=== PATIENT | male | born 1960 | race Caucasian/White ===

== ENCOUNTER 2016-11-20 17:33 | Emergency (ER) | payer OTHER ==
[~2016-11-20] VITALS: Ht 180.3 cm; Wt 104.7 kg
[~2016-11-20 17:33] MED LIST: ASPI81TA28 PO; LISI-461 PO; PRLSR20 PO; SIMV10TA2 PO
[2016-11-20 17:43] VITALS: TEMP 36.7; Ht 180.3 cm; Wt 104.7 kg
[2016-11-20] MEDS ORDERED: KETOROLAC TROMETHAMINE 30 MG/ML VIAL IV STA (18:03)
[2016-11-20] MEDS ORDERED: HYDROmorphone INJ 1 MG/ML SYR IV STA (18:03)
[2016-11-20] MEDS ORDERED: ONDANSETRON INJ 2 MG/ML 2 ML VIAL IV STA (18:03)
[2016-11-20] MEDS ORDERED: SODIUM CHLORIDE 0.9% 1000ML 1,000 ML IV STA (18:03)
--- NOTE | 2016-11-20 18:04 | EMERGENCY ROOM VISIT NOTE ---
History Report prepared by Alex: Jonelle Caro Under the Supervision of: Dr. Gregorio Strong M.D. First contact with patient: 17:45 Chief Complaint: ABDOMINAL PAIN Stated Complaint: STOMACH PAIN, VOMITING History of Present Illness The patient is a 55 year old male who presents to the Emergency Room with complaints of persistent central abdominal pain that began around 0800 this morning and has progressively worsened. He currently rates his discomfort as a 10/10 in severity. The patient states that he woke with the pain this morning and denies any worsening pain with food. He associates nausea and vomiting with his symptoms. The patient denies the pain radiating to any other part of the body, back pain, or urinary symptoms. He denies taking anything for his discomfort. The patient denies any history of a cholecystectomy or appendectomy. Source of History: patient Onset: 0800 this morning Position: abdomen (central) Symptom Intensity: 10/10 Timing: worsening (progressively), other (persistent) Associated Symptoms: + nausea, + vomiting, No back pain, No urinary symptoms Review of Systems See HPI for pertinent positives & negatives. A total of 10 systems reviewed and were otherwise negative. Past Medical & Surgical Medical Problems: (1) Autism (2) GERD (gastroesophageal reflux disease) (3) Hyperlipidemia (4) Hypertension Family History Diabetes mellitus FHx: cancer FHx: gallbladder disease FHx: heart disease FHx: lung disease Hypertension Social History Smoking Status: Never Smoker Alcohol Use: occasionally Housing Status: lives with family Occupation Status: disabled Current/Historical Medications Scheduled Aspirin (Aspirin Ec), 81 MG PO DAILY Docusate Sodium (Colace), 1 CAP PO BID Lisinopril (Zestril), 10 MG PO DAILY Omeprazole (Prilosec), 20 MG PO DAILY Sennosides (Senokot), 8.6 MG PO HS Simvastatin (Zocor), 10 MG PO QPM Scheduled PRN Oxycodone/Acetaminophen 5MG/325MG (Percocet 5MG/325MG), 1-2 TAB PO Q4H PRN for Pain Allergies Coded Allergies: No Known Allergies (Unverified , 11/20/16) Physical Exam Vital Signs Date Time Temp Pulse Resp B/P (MAP) Pulse Ox O2 Delivery O2 Flow Rate FiO2 11/20/16 20:00 94 18 134/88 94 11/20/16 18:50 87 18 145/83 95 11/20/16 18:06 87 11/20/16 17:43 36.7 85 18 168/103 98 Room Air Physical Exam GENERAL: Patient is a healthy-appearing well-nourished male HEAD: Normocephalic atraumatic EYES: Ocular movements intact pupils equal and react to light OROPHARYNX mucous membranes are moist no exudates present no erythema or edema present NECK: Supple no nuchal rigidity CHEST: Good equal expansion LUNGS: Clear and equal to auscultation CARDIAC: Normal S1 and S2 ABDOMEN: Tender in the right upper quadrant. Soft, no guarding BACK: No CVA tenderness EXTREMITIES: No pain upon palpation normal muscle strength in all groups no clubbing cyanosis or edema NEURO: Patient is following commands and answering questions appropriately. Alert and oriented x3 Cranial Nerves 2-12 grossly intact Medical Decision & Procedures ER Provider Diagnostic Interpretation: Radiology results as stated below per my review and radiologist interpretation: ABDOMINAL ULTRASOUND, RIGHT UPPER QUADRANT HISTORY: Pain. Nausea. Pt c/o RUQ abd pain. COMPARISON: None. FINDINGS: Pancreas: The pancreas demonstrates a normal echotexture. Liver: Fatty infiltration Gallbladder: 1.5 cm gallstone. Normal gallbladder wall. CBD: 7 mm Right kidney: No hydronephrosis. IMPRESSION: Gallstone. Slight prominence of the common bile duct. Fatty infiltration of liver. Electronically signed by: Red Carlos M.D. 11/20/2016 6:46 PM Dictated Date/Time: 11/20/2016 6:45 PM ABDOMEN AND PELVIS CT WITH IV CONTRAST CT DOSE: 849.33 mGy.cm HISTORY: Pain Pt c/o epigastric pain TECHNIQUE: Multiaxial CT images of the abdomen and pelvis were performed following the use of intravenous contrast. COMPARISON STUDY: None. FINDINGS: The lung bases are clear. The liver, spleen, gallbladder, pancreas, kidneys, and adrenal glands are within normal limits. No bowel wall thickening or obstruction. The pelvic organs are unremarkable. No suspicious lytic or blastic osseous lesions. The appendix is normal. Gallbladder shows no evidence for distention. Kidneys negative for hydronephrosis. IMPRESSION: No acute process of the abdomen or pelvis Electronically signed by: Red Carlos M.D. 11/20/2016 7:08 PM Dictated Date/Time: 11/20/2016 7:06 PM Laboratory Results 11/20/16 18:01 Red Blood Count 5.00, Mean Corpuscular Volume 86.0, Mean Corpuscular Hemoglobin 30.4, Mean Corpuscular Hemoglobin Concent 35.3, Mean Platelet Volume 8.7, Neutrophils (%) (Auto) 87.0, Lymphocytes (%) (Auto) 7.6, Monocytes (%) (Auto) 4.8, Eosinophils (%) (Auto) 0.2, Basophils (%) (Auto) 0.2, Neutrophils # (Auto) 11.29, Lymphocytes # (Auto) 0.98, Monocytes # (Auto) 0.62, Eosinophils # (Auto) 0.02, Basophils # (Auto) 0.02 11/20/16 18:01 Test 11/20/16 18:01 11/20/16 18:11 White Blood Count 12.96 K/uL (4.8-10.8) Red Blood Count 5.00 M/uL (4.7-6.1) Hemoglobin 15.2 g/dL (14.0-18.0) Hematocrit 43.0 % (42-52) Mean Corpuscular Volume 86.0 fL (80-100) Mean Corpuscular Hemoglobin 30.4 pg (25-34) Mean Corpuscular Hemoglobin Concent 35.3 g/dl (32-36) Platelet Count 243 K/uL (130-400) Mean Platelet Volume 8.7 fL (7.4-10.4) Neutrophils (%) (Auto) 87.0 % Lymphocytes (%) (Auto) 7.6 % Monocytes (%) (Auto) 4.8 % Eosinophils (%) (Auto) 0.2 % Basophils (%) (Auto) 0.2 % Neutrophils # (Auto) 11.29 K/uL (1.4-6.5) Lymphocytes # (Auto) 0.98 K/uL (1.2-3.4) Monocytes # (Auto) 0.62 K/uL (0.11-0.59) Eosinophils # (Auto) 0.02 K/uL (0-0.5) Basophils # (Auto) 0.02 K/uL (0-0.2) RDW Standard Deviation 43.3 fL (36.4-46.3) RDW Coefficient of Variation 13.8 % (11.5-14.5) Immature Granulocyte % (Auto) 0.2 % Immature Granulocyte # (Auto) 0.03 K/uL (0.00-0.02) Est Creatinine Clear Calc Drug Dose 85.6 ml/min Estimated GFR () 78.4 Estimated GFR (Non- 67.7 BUN/Creatinine Ratio 17.7 (10-20) Calcium Level 9.5 mg/dl (8.5-10.1) Total Bilirubin 0.7 mg/dl (0.2-1) Direct Bilirubin 0.1 mg/dl (0-0.2) Aspartate Amino Transf (AST/SGOT) 23 U/L (15-37) Alanine Aminotransferase (ALT/SGPT) 31 U/L (12-78) Alkaline Phosphatase 50 U/L (45-117) Total Protein 7.7 gm/dl (6.4-8.2) Albumin 4.1 gm/dl (3.4-5.0) Lipase 150 U/L (73-393) Bedside Hemoglobin 15.6 g/dl (14.0-18.0) Bedside Hematocrit 46 % (42-52) Bedside Sodium 137 mEq/L (135-144) Bedside Potassium 4.1 mEq/L (3.3-5.0) Bedside Chloride 100 mEq/L (101-112) Bedside Total CO2 23 mEq/l (24-31) Anion Gap 20.0 mmol/L (16-25) Bedside Blood Urea Nitrogen 21 mg/dl (7-18) Bedside Creatinine 1.0 mg/dl (0.6-1.3) Bedside Glucose (other) 118 mg/dl (70-99) Bedside Ionized Calcium (Rafaela) 1.12 mmol/l (1.12-1.32) Labs reviewed by ED physician. Medications Administered Medications (Trade) Dose Ordered Sig/Xavi Route Start Time Stop Time Status Last Admin Dose Admin Sodium Chloride 1,000 ml @ 999 mls/hr Q1H1M STAT IV 11/20/16 18:03 11/20/16 19:03 DC 11/20/16 18:12 999 MLS/HR Ketorolac Tromethamine (Toradol Inj) 30 mg NOW STAT IV 11/20/16 18:03 11/20/16 18:06 DC 11/20/16 18:13 30 MG Hydromorphone HCl (Dilaudid Inj) 1 mg NOW STAT IV 11/20/16 18:03 11/20/16 18:06 DC 11/20/16 18:16 1 MG Oxycodone/ Acetaminophen (Percocet 5/ 325MG Home Pack) 1 homepack UD ONCE PO 11/20/16 19:45 11/20/16 19:46 DC 11/20/16 19:52 1 HOMEPACK ECG Indication: abdominal pain Rate (beats per minute): 82 Rhythm: normal sinus Findings: no acute ischemic change, no ectopy ED Course 1746: Past medical records reviewed. The patient was evaluated in room B7. A complete history and physical examination was performed by the medical student. 1757: Past medical records reviewed. The patient was evaluated in room B7. A complete history and physical examination was performed. 1802: Ordered Zofran Inj 4 mg IV, Dilaudid Inj 1 mg IV, Toradol Inj 30 mg IV, Sodium Chloride 1000 ml @ 999 mls/hr IV. 1848: I reevaluated the patient and he is resting comfortably. I discussed the exam findings with him and I discussed the treatment plan. He will have a CT scan. 1935: I reevaluated the patient and he is doing well. I discussed all the exam findings with him and I discussed the treatment plan. He verbalized complete understanding and agreement. He is ready to go home. 1944: Ordered Oxycodone/Acetaminophen 1 homepack PO. Medical Decision Differential diagnosis: Etiologies such as appendicitis, diverticulitis, PUD, biliary pathology, UTI, pancreatitis, obstruction, mesenteric ischemia, aortic pathology, infections, inflammatory bowel disease, renal colic, as well as others were entertained. Medication Reconciliation: I attest that I have personally reviewed the patient' s current medication list Blood Pressure Screening: Patient was found to have an elevated blood pressure and was referred to their primary care doctor for recheck and further treatment This is a 55-year-old male who presents emergency department complaining of right upper quadrant abdominal pain. The patient was sent for an ultrasound of the right upper quadrant. This was concerning for gallstone. An IV was established, patient given normal saline bolus. The patient does have an elevation in his white blood count cell count however subsequent abdominal examinations in the emergency department revealed that the patient did not have any further abdominal pain. I do believe based on the ultrasound results with the patient is most likely suffering from biliary colic. He is afebrile now and has no evidence of a surgical abdomen. He has no evidence of acute cholecystitis. Based on these findings I do feel that the patient as well as to be discharged home for follow-up with his primary care physician. Patient was in agreement with the treatment plan. Impression Primary Impression: Biliary colic Additional Impression: Epigastric pain Scribe Attestation The scribe's documentation has been prepared under my direction and personally reviewed by me in its entirety. I confirm that the note above accurately reflects all work, treatment, procedures, and medical decision making performed by me. Departure Information Dispostion Home / Self-Care Prescriptions Docusate Sodium (COLACE) 100 Mg Cap 1 CAP PO BID for 10 Days, #20 CAP Prov: Gregorio Strong MD 11/20/16 Sennosides (SENOKOT) 8.6 Mg Tab 8.6 MG PO HS for 10 Days, #10 TAB Prov: Gregorio Strong MD 11/20/16 Oxycodone/Acetaminophen 5MG/325MG (PERCOCET 5MG/325MG) Tab 1-2 TAB PO Q4H Y for Pain, #14 TAB Prov: Gregorio Strong MD 11/20/16 Referrals Lc Mir M.D. (PCP) Darren Michele M.D. Forms Call Back Authorization, HOME CARE DOCUMENTATION FORM, IMPORTANT VISIT INFORMATION, School Instructions, Work Instructions Patient Instructions Diet Clear Liquid Dc, ED Abdominal Pain Gallstone Poss, ED Gallstone W Biliary Colic, Hypertension Dc, My [facility] Additional Instructions Follow up with DR Michele's office Clear liquid diet next 48 hours You were found to have an elevated blood pressure today (>120 sytolic or >90 diastolic). Per medicare guidelines, you need to follow up with this blood pressure screening with your Primary Care Physician (PCP). For a new PCP call [phone]. You received narcotic or benzodiazepene medication while in the emergency room today. Do not drive, operate heavy machinery, or drink alcohol under the influence of this medication. Take 600 mg Ibuprofen every 6 hours Take Percocet for breakthrough pain You have been examined and treated today on an emergency basis only. This is not a substitute for, or an effort to provide, complete comprehensive medical care. It is impossible to recognize and treat all injuries or illnesses in a single emergency department visit. It is therefore important that you follow up closely with Dr Mir. Call as soon as possible for an appointment. Thank you for your time and consideration. I look forward to speaking with you again soon. Please don't hesitate to call us if you have any questions. Problem Qualifiers
[2016-11-20 18:14] LABS: BASO % 0.2 %; BASO ABS # 0.02 K/uL (0-0.2); COMPLETE YES; EOS % 0.2 %; IG% 0.2 %; LYMPH % 7.6 %; LYMPH ABS # 0.98 K/uL (1.2-3.4); MEAN CORPUSCULAR HEMOGLOBIN 30.4 pg (25-34); MEAN CORPUSCULAR HGB CONC 35.3 g/dl (32-36); MEAN PLATELET VOLUME 8.7 fL (7.4-10.4); MONO % 4.8 %; PLATELET COUNT 243 K/uL (130-400); WHITE BLOOD COUNT 12.96 K/uL (4.8-10.8)
[2016-11-20 18:30] LABS: ISTAT HEMOGLOBIN 15.6 g/dl (14.0-18.0); ISTAT IONIZED CALCIUM 1.12 mmol/l (1.12-1.32)
[2016-11-20 18:33] LABS: BUN/CREATININE RATIO 17.7 (10-20); CALCIUM 9.5 mg/dl (8.5-10.1); CREATININE 1.2 mg/dl (0.60-1.40); POTASSIUM 3.9 mmol/L (3.5-5.1)
--- NOTE | 2016-11-20 18:47 | DIAGNOSTIC IMAGING REPORT ---
ABDOMINAL ULTRASOUND, RIGHT UPPER QUADRANT HISTORY: Pain. Nausea. Pt c/o RUQ abd pain. COMPARISON: None. FINDINGS: Pancreas: The pancreas demonstrates a normal echotexture. Liver: Fatty infiltration Gallbladder: 1.5 cm gallstone. Normal gallbladder wall. CBD: 7 mm Right kidney: No hydronephrosis. IMPRESSION: Gallstone. Slight prominence of the common bile duct. Fatty infiltration of liver. Electronically signed by: eRd Carlos M.D. 11/20/2016 6:46 PM Dictated Date/Time: 11/20/2016 6:45 PM
[2016-11-20] MEDS ORDERED: OPTIRAY 320 IV PRN (19:00)
--- NOTE | 2016-11-20 19:09 | DIAGNOSTIC IMAGING REPORT ---
ABDOMEN AND PELVIS CT WITH IV CONTRAST CT DOSE: 849.33 mGy.cm HISTORY: Pain Pt c/o epigastric pain TECHNIQUE: Multiaxial CT images of the abdomen and pelvis were performed following the use of intravenous contrast. COMPARISON STUDY: None. FINDINGS: The lung bases are clear. The liver, spleen, gallbladder, pancreas, kidneys, and adrenal glands are within normal limits. No bowel wall thickening or obstruction. The pelvic organs are unremarkable. No suspicious lytic or blastic osseous lesions. The appendix is normal. Gallbladder shows no evidence for distention. Kidneys negative for hydronephrosis. IMPRESSION: No acute process of the abdomen or pelvis Electronically signed by: Red Carlos M.D. 11/20/2016 7:08 PM Dictated Date/Time: 11/20/2016 7:06 PM
[2016-11-20] MEDS ORDERED: PERCOCET HOME PACK PO ONE (19:45)
[2016-11-20] MEDS ORDERED: OXYC-57 PO (19:47)
[2016-11-20] MEDS ORDERED: DOCU-94 PO (19:47)
[2016-11-20] MEDS ORDERED: SENN1TAB77 PO (19:47)
[2016-11-20 20:00] VITALS: BP 134/88; PULSE 94; O2SAT 94
== END 2016-11-20 20:24 | disposition home or self-care (01) ==
LOC: C.EDB 17:34
DX: K80.50 Calculus of bile duct without cholangitis or cholecystitis without obstruction (principal); R10.13 Epigastric pain; F84.0 Autistic disorder; K21.9 Gastro-esophageal reflux disease without esophagitis; E78.5 Hyperlipidemia, unspecified; I10 Essential (primary) hypertension; Z83.3 Family history of diabetes mellitus; Z82.49 Family history of ischemic heart disease and other diseases of the circulatory system; Z79.82 Long term (current) use of aspirin; Z79.899 Other long term (current) drug therapy